=== PATIENT | female | born 1980 | race Caucasian/White ===

== ENCOUNTER → 2024-08-29 15:07 | Outpatient (BNVA) | payer OTHER, SELFPAY | PROVIDERS: Visit Provider Orthopaedic Surgery | DX: M54.50 Low back pain, unspecified (principal); M25.552 Pain in left hip | CPT/HCPCS: 72110; 73502 ==

== ENCOUNTER 2024-09-09 07:54 | Outpatient (CLI) | payer OTHER, SELFPAY ==
--- NOTE | 2024-09-09 08:00 | MR_ITS ---
WS: [id number] MRI LUMBAR SPINE NONCONTRAST TECHNIQUE: Sagittal T1, T2 and STIR imaging. Axial T1 and T2 imaging. CLINICAL INFORMATION: back pain COMPARISON: None. FINDINGS: Lumbar scoliosis. No acute compression. No high-grade central canal stenosis. Disc bulging worse at L3-L4 and L4-L5. Small annular fissures L3-4 and L4-5. L1-L2: Mild facet arthropathy. Spinal canal and foramen are patent. L2-L3: Mild annular bulging. Mild facet arthropathy. Spinal canal and foramen are patent. L3-L4: Mild annular bulging. Small central protrusion with a small annular fissure. Mild central canal stenosis. Impingement of the traversing L4 nerve roots bilaterally LEFT greater than RIGHT. Mild facet arthropathy. Foramen are patent. L4-L5: Mild annular bulging. Small annular fissure. Mild facet arthropathy. Spinal canal and foramen are patent. Prior postoperative changes LEFT hemilaminectomy and partial discectomy. L5-S1: Mild annular bulging. Slight effacement of the ventral thecal sac. Spinal canal and foramen are patent. Mild facet arthropathy. Visualized pelvic bony structures: Normal. Paravertebral soft tissues: Normal. MR/MR lumbar spine wo con* [id number] IMPRESSION: 1. Mild lumbar curve. No acute compression. 2. Disc bulging L3-4 with a small central protrusion and annular fissure. Mild central canal stenosis with significant impingement of the traversing LEFT gre ater than RIGHT L4 nerve roots 3. Prior postoperative changes LEFT L4-5 hemilaminectomy and partial discectom y. 4. Mild annular bulging L5-S1 with slight effacement of the ventral thecal sac . 5. Mild facet arthropathy L3-L5.
== END 2024-09-09 07:55 | disposition home or self-care (01) ==
PROVIDERS: PCP Nurse Practitioner Family; Visit Provider Orthopaedic Surgery
DX: M51.369 Other intervertebral disc degeneration, lumbar region without mention of lumbar back pain or lower extremity pain (principal); M43.8X6 Other specified deforming dorsopathies, lumbar region; M51.26 Other intervertebral disc displacement, lumbar region; M48.061 Spinal stenosis, lumbar region without neurogenic claudication; Z98.890 Other specified postprocedural states; M51.379 Other intervertebral disc degeneration, lumbosacral region without mention of lumbar back pain or lower extremity pain; M47.896 Other spondylosis, lumbar region; M41.86 Other forms of scoliosis, lumbar region; R93.7 Abnormal findings on diagnostic imaging of other parts of musculoskeletal system
CPT/HCPCS: 72148